=== PATIENT | female | born 1970 | race Caucasian/White ===

== ENCOUNTER 2021-02-03 00:41 | Emergency (ER) | payer OTHER, SELFPAY ==
[2021-02-03 00:52] VITALS: BP 126/79; PULSE 66; RESP 18; TEMP 36.6; O2SAT 98
--- NOTE | 2021-02-03 00:52 | DI.RAD.S_ITS ---
PROCEDURE: XR FINGER LT MIN 2V INDICATIONS: possible dislocation TECHNIQUE: AP hand, 2 views of the 3rd finger(s) acquired. COMPARISON: None. FINDINGS: Bones: No fractures or dislocations. No suspicious bony lesions. Soft tissues: No suspicious soft tissue calcifications. IMPRESSION: Normal for age, source of current pain after trauma symptoms is not seen. Dictated by: Pawel Castillo M.D. on 02/03/2021 at 8:46 Approved by: Pawel Castillo M.D. on 02/03/2021 at 8:46
[2021-02-03] MEDS: LIDO 1%/SOD BICARB 8.4% (10ML) 10 ML SYRINGE INJ (00:58)
--- NOTE | 2021-02-03 01:02 | ED_ITS ---
HPI - General Adult General Chief complaint: Extremity Injury, Upper Stated complaint: dislocated finger on left hand Time Seen by Provider: 02/03/21 00:48 Source: patient Mode of arrival: Ambulatory Limitations: no limitations History of Present Illness HPI narrative: 50-year-old female who is here for evaluation of what appears to be a dislocated left middle finger. She states that it occurred earlier today. She tripped well at her camp site and when she landed she dislocated the finger. No other injuries reported from the event. Related Data Allergies Allergy/AdvReac Type Severity Reaction Status Date / Time No Known Drug Allergies Allergy Verified 02/03/21 01:56 Review of Systems Musculoskeletal Comments: Left middle finger pain Integumentary/Breasts Skin/Breast: Reports system reviewed and no additional complaints, except as documented Neurologic Neurologic: Reports system reviewed and no additional complaints, except as docu mented Hematologic/Lymphatic On Anticoagulants: No Patient History Social History Smoking Status: Never smoker Smoking Status: Never smoker alcohol intake frequency: a few times a month Substance Use Type: does not use Exam Initial Vital Signs Initial Vital Signs: Vital Signs Temperature 98 F 02/03/21 00:52 Pulse Rate 66 02/03/21 00:52 Respiratory Rate 18 02/03/21 00:52 Blood Pressure 126/79 02/03/21 00:52 Pulse Oximetry 98 02/03/21 00:52 Const General: cooperative and comfortable Cardio Pulses: radial pulses present on the left Skin General: no rashes or lesions noted Neuro Sensory Exam: no sensory deficits noted Extrem Other: Patient does have a ulnar deviation of approximately 60? of the PIP joint of the left middle finger. Procedures Nerve Block Nerve Block 1: Local Anesthetic: lidocaine 1% and with bicarb Amount of anesthesia used (mL): 5 Side: left Nerve Blocks: digital Procedure Successful: Yes Patient Tolerated Procedure: Well and No complications Orthopedic Joint Reduction Joint #1: Side: left Joint Reduction Location: finger Analgesia: nerve block Local Anesthesia: lidocaine 1% and with bicarb Amount of anesthesic used (mL): 5 Technique used: direct manipulation Post-reduction neuro exam: intact Post-reduction vascular: intact Post Reduction X-Ray Obtained: Yes Post Reduction X-Ray Results: reduced Splint Applied: Yes Orthopedic Splinting/Casting Injury #1: Side: left Upper Extremity Injury Location: finger Upper Extremity Immobilizer: aluminum form splint Post splinting neuro exam: intact Post splinting vascular exam: intact Placed by: Nursing Course Orders Ordered: ED Orders 02/03/21 00:52 XR finger LT min 2V Stat Discontinued Medications Lidocaine/Sodium Bicarbonate (Lido 1%/Sod Bicarb 8.4% (10ml) 10 Ml Syringe) 10 ml INJ NOW ONE Stop: 02/03/21 00:53 Last Admin: 02/03/21 00:58 Dose: 10 ml Documented by: JAVON Vital Signs Vital signs: Vital Signs - 8 hr 02/03/21 00:52 Temperature 98 F Pulse Rate 66 Respiratory Rate 18 Blood Pressure 126/79 Pulse Oximetry 98 Medical Decision Making Imaging Data Extremity x-ray #1: Radiologist's Impression: Post reduction finger x-ray Acute avulsion fracture anterior base 3rd middle phalanx MDM Narrative Medical decision making narrative: Patient has obvious dislocation of the PIP joint of the left middle finger. Patient was vascularly intact however the tip of the finger did have some duskiness appear to it. The capillary refill was between 3 and 4 seconds. A digital block was successfully performed and secondary to the appearance of the finger it was reduced prior to obtaining x- rays. The patient tolerated the procedure well. Your reduced easily. The x- ray is performed was a post reduction x-ray and does show a small avulsion fracture at the base of the 3rd middle phalanx. She was placed in a finger splint. She was given care instructions and return precautions. She expressed understanding and agreement. Discharge Plan Departure Patient Disposition: Home Clinical Impression: Dislocation of finger Instructions: DI for Finger Dislocation Activity Restrictions/Additional Instructions: I do recommend that you leave the splint on for the next couple days. This will support your finger and allow the soft tissues to heal. I also recommend that you ice your finger. You can take Tylenol/ibuprofen for any discomfort. Contact your primary doctor for a follow-up. Return to the emergency department for any new or worsening symptoms
== END 2021-02-03 01:42 | disposition home or self-care (01) ==
PROVIDERS: Emergency Provider Emergency Medicine
DX: S63.253A Unspecified dislocation of left middle finger, initial encounter (principal); W19.XXXA Unspecified fall, initial encounter
CPT/HCPCS: 26770; 29130; 64450; 73140; 99283